=== PATIENT | female | born 1990 | race American Indian/Alaskan Native ===

== ENCOUNTER 2021-04-03 09:29 | Outpatient (CLI) | payer BC ==
--- NOTE | 2021-04-03 10:43 | Ultrasound Report ---
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 COMPARISON: None currently available, though possibly a prior ultrasound might still exist from over 10 years ago at an unspecified location in [place] FINDINGS: At the site of palpable concern at 11:00, 9 cm from the nipple, an ovoid taller than wide s olid mass is seen measuring 2.7 cm in greatest diameter. Peripheral blood flow is noted. No shadowing is seen and mild through transmission is noted. Lesion is mostly hypoechoic though with a mildly het erogenous appearance. Borders are generally well-defined and somewhat macrolobulated but with mild ar eas of microlobulation. IMPRESSION: Palpable lesion is solid as above and, though in this young patient probably is a fibroad enoma, is of low suspicion for malignancy. I would recommend ultrasound-guided biopsy unless prior ul trasound examination becomes available demonstrating long-term stability. Follow up recommendation: As above BI-RADS Category 4: Suspicious for Malignancy. A normal or "negative" report should not preclude biopsy or follow-up of a clinically suspicious find ing. Signer Name: Bao Younger MD Signed: 04/03/2021 10:39 AM Workstation Name: [id number]
== END 2021-04-03 09:30 | disposition home or self-care (01) ==
LOC: US 09:29
PROVIDERS: ATTEND Obstetrics & Gynecology
DX: N63.22 Unspecified lump in the left breast, upper inner quadrant (principal)

== ENCOUNTER 2021-05-20 08:59 | Outpatient (CLI) | payer BC ==
--- NOTE | 2021-05-20 16:10 | Ultrasound Report ---
ULTRASOUND-GUIDED LEFT BREAST BIOPSY INDICATION: 5 month ; left palpable abnormality, enlarging, shown to be solid on recent ultr asound; remote history of fibroadenoma COMPARISON: Left breast ultrasound 04/03/2021 CONSENT: Procedure was discussed at length in advance with the patient. Possible risks and benefits w ere discussed including the possibility of bleeding. Postbiopsy care was discussed. Opportunity for q uestions was provided. Patient is not on anticoagulant therapy and reports no pertinent allergies. PROCEDURE: Timeout was performed. The large hypoechoic solid lesion at 11:00, 10 cm from the nipple, was targeted sonographically. This lesion was noted to have significantly enlarged from the study in April with a maximal diameter now 4 cm compared to 2.7 cm previously. Using aseptic technique and unde r local anesthesia, with real-time sonographic guidance, the area of interest was biopsied. Multiple specimens were obtained with a 12-gauge Celero biopsy device and sent to pathology for analysis. A me tallic clip was placed at the end of the procedure. Site was secured. No mammogram was obtained due t o the large size of this lesion, clip placement internally, and age of the patient. Patient tolerated the procedure well and left the department in good condition. IMPRESSION: Successful ultrasound-guided left breast biopsy Signer Name: Bao Younger MD Signed: 05/20/2021 4:06 PM Workstation Name: [id number]
== END 2021-05-20 09:00 | disposition home or self-care (01) ==
LOC: SPVWC 08:59
PROVIDERS: ATTEND Surgery
DX: N63.21 Unspecified lump in the left breast, upper outer quadrant (principal)
CPT/HCPCS: 88305; 88341; 88342

== ENCOUNTER 2021-06-26 16:13 | Outpatient (CLI) | payer BC ==
[2021-06-26 16:25] VITALS: BP 110/68
[2021-06-26] MEDS ORDERED: BETAMET ACET/BETAMET NA PH 6 MG/ML INJ 5 ML MDV IM SCH (16:48)
== END 2021-06-26 16:30 | disposition home or self-care (01) ==
LOC: TRG 16:13 → APU 16:14 → TRG 16:30
PROVIDERS: ATTEND Obstetrics & Gynecology
DX: Z34.93 Encounter for supervision of normal pregnancy, unspecified, third trimester (principal); Z3A.34 34 weeks gestation of pregnancy
CPT/HCPCS: 59025; 96372; J0702

== ENCOUNTER 2021-06-27 16:18 | Outpatient (CLI) | payer BC ==
[2021-06-27 16:49] VITALS: BP 130/77
[2021-06-27] MEDS ORDERED: BETAMET ACET/BETAMET NA PH 6 MG/ML INJ 5 ML MDV IM ONE (17:00)
== END 2021-06-27 17:06 | disposition home or self-care (01) ==
LOC: TRG 16:18 → APU 16:19 → TRG 17:06
PROVIDERS: ATTEND Student in an Organized Health Care Education/Training Program
DX: Z34.93 Encounter for supervision of normal pregnancy, unspecified, third trimester (principal); Z3A.34 34 weeks gestation of pregnancy
CPT/HCPCS: 59025; 96372